=== PATIENT | female | born 1950 | race Two or more races ===

== ENCOUNTER 2018-08-03 13:26 | Outpatient (CLI) | payer OTHER | END 2018-08-03 13:36 | disposition home or self-care (01) | LOC: RAD 501 13:26 | DX: M25.512 Pain in left shoulder (principal) ==

== ENCOUNTER 2018-10-23 11:21 | Outpatient (CLI) | payer OTHER | END 2018-10-23 11:28 | disposition home or self-care (01) | LOC: RAD 501 11:21 | DX: M54.5 Low back pain (principal); M25.551 Pain in right hip ==

== ENCOUNTER 2020-08-09 13:32 | Outpatient (CLI) | payer OTHER | END 2020-08-09 13:41 | disposition HB | LOC: RAD 13:32 | PROVIDERS: ATTEND Physical Medicine & Rehabilitation | DX: M72.2 Plantar fascial fibromatosis (principal) ==

== ENCOUNTER 2022-04-22 14:36 | Emergency (ER) | payer OTHER ==
[~2022-04-22] VITALS: Ht 160 cm; Wt 131.1 kg
[2022-04-22] MEDS ORDERED: GLIMEPIRIDE4 M1 PO (15:18)
[2022-04-22] MEDS ORDERED: JANUMET 50-1,01 EACH PO (15:18)
[2022-04-22] MEDS ORDERED: CARVEDILOL25 M1 PO (15:19)
[2022-04-22] MEDS ORDERED: LOSARTAN POTAS100 MG PO (15:19)
[2022-04-22] MEDS ORDERED: FUROSEMIDE40 MG PO (15:19)
[2022-04-22] MEDS ORDERED: PRAVASTATIN SOD80 MG PO (15:19)
== END 2022-04-22 19:29 | disposition home or self-care (01) ==
LOC: ER 14:36
DX: J44.1 Chronic obstructive pulmonary disease with (acute) exacerbation (principal); J45.901 Unspecified asthma with (acute) exacerbation; Z20.822 Contact with and (suspected) exposure to COVID-19; Z91.041 Radiographic dye allergy status; Z88.6 Allergy status to analgesic agent

== ENCOUNTER 2023-08-22 18:46 | Inpatient (IN) | payer OTHER ==
[~2023-08-22] VITALS: Ht 160 cm; Wt 134.3 kg
[~2023-08-22 18:46] MED LIST: CARVEDILOL25 M1 PO; FUROSEMIDE40 MG PO; GLIMEPIRIDE4 M1 PO; JANUMET 50-1,01 EACH PO; LOSARTAN POTAS100 MG PO; PRAVASTATIN SOD80 MG PO
--- NOTE | 2023-08-22 20:04 | NUR ---
PTE ALERTA Y OEIENTADA X3 REFIERE VENIR POR ASMA, SE REALIZA EKG Y SE PRESENTA MD LAMA, EL MISMO INDICA PASAR A PTE A LA UNIDAD DE CHEST PAIN. AL MOMENTO DE VITALES PTE SATURANDO 90% Y PRESION ARTERIAL MANUAL 200/130
[2023-08-22] MEDS ORDERED: NITROGLYCERIN IN 5 % DEXTROSE 250 ML IV SCH (20:15)
[2023-08-22] MEDS ORDERED: FUROsemide 40 MG/4 ML VIAL IV ONE (20:15)
[2023-08-22 20:19] LABS: HEMATOCRIT 35.4 % (36.0-45.00); HEMOGLOBIN 12.1 g/dL (12.0-15.00); MEAN CELL VOLUME 72.4 fL (80.00-100.00); MEAN CORPUSCULAR HEMOGLOBIN 24.7 pg (27.00-32.0); MEAN CORPUSCULAR HGB CONC 34.1 g/dl (32.0-36.0); PLATELET COUNT 241 K/uL (150-450); RED BLOOD COUNT 4.88 M/uL (4.00-6.00); RED CELL DISTRIBUTION WIDTH 19.9 % (11.5-14.5)
[2023-08-22 20:20] LABS: ABG PH 7.388 (7.35-7.45); ABG PO2 61.5 mmHg (80-100); ABG pCO2 53.5 mmHg (35-45); BICARBONATE 31.5 mmol/l (23-25); SaO2 91.3 %; Tco2 33.2 mmol/l; allen test SATISFACTORY; o2 21 %; puncture site RADIAL LEFT
[2023-08-22 20:51] LABS: ALBUMIN 3.7 gm/dL (3.4-5.0); BILIRUBIN TOTAL 0.38 mg/dL (0.3-1.2); CALCIUM 9.5 mg/dL (8.5-10.1); CREATININE SERUM 0.8 mg/dL (0.55-1.02); GFR 70.12; GLOBULINA 4.3 G/DL (2.4-3.5); POTASSIUM 4.55 mEq/L (3.5-5.1)
--- NOTE | 2023-08-22 20:59 | NUR ---
SE RECIBE PTE ALERTA Y ORIENTADA X3 EN UNIDAD DE CHEST PAIN. SE UBICA PTE EN CAMA 16, SE COLOCA CAMA EN NIVEL MAS BAJO, SE CONECTA PTE A TELEMETRIA Y OXIMETRIA DE PULSO CONTINUA, SE COLOCA VENTURY MASK AL 40%, SE CANALIZA PTE EN BRAZO JAYDEN X2 CON ANGIOS #20, LOS CUALES SE LISA PATENTES,ALEX DE EDEMA Y ERITEMA. SE COLOCA TRIDIL 50ML/250ML BAJANDO A 3ML/HR. SE INSERTA POWELL CATHETER EL CUAL ESTA BAJANDO A GRAVEDAD Y PRESENTA RETORNO DE ORINA COLOR AMARILLO TORO,JEY TRASPARENTE Y SIN SEDIMENTOS. SE COLECTAN MUESTRAS DE LABORATORIO Y SE ADMINISTRAN MEDICAMENTOS BAJO MEDIDAS ASEPTICAS Y SUSANA LA ORDEN MEDICA. SE MANTIENE PTE BAJO OBSERVACION POR CAMBIOS SIGNIFICATIVOS.
[2023-08-22] MEDS ORDERED: LEVALBUTEROL HCL 1.25 MG/3 ML SOLUTION IH SCH (21:45)
[2023-08-22] MEDS ORDERED: METHYLPREDNISOLONE SOD SUCC 125 MG VIAL IV ONE (21:45)
[2023-08-22 22:05] LABS: INR 1.09; PROTHROMBIN TIME 11.4 SECONDS (9.0-11.5)
--- NOTE | 2023-08-22 22:58 | NUR ---
SE RECIBE FEMINA ALERTA Y ORIENTADA POR ASHVIN ESFERAS CON VENTURY MASK 50%. ESTA CONECTADA AL MONITOR CARDIACO, NBP Y OXIMETRIA CONTINUA. TIENE CANALIZACION X3 EN BRAZO JAYDEN, PERMANECEN PATENTE ALEX DE EDEMA Y ERITEMA. TIENE DRIP DE TRIDIL 50MG/250 ML @3ML/HR. TIENE POWELL A GRAVEDAD CON ORINA AMARILLA NEHEMIAH. PENDIENTE CT PECHO CON IV CONTRAST
[2023-08-22] MEDS ORDERED: DIPHENHYDRAMINE HCL 50 MG/ML VIAL 1ML IV ONE (23:15)
[2023-08-22] MEDS ORDERED: ENOXAPARIN SODIUM 100 MG/ML SYRINGE SUBCUTANEO ONE (23:45)
[2023-08-23] MEDS ORDERED: cloNIDine HCL 0.2 MG TABLET PO ONE (00:15)
--- NOTE | 2023-08-23 07:31 | NUR ---
SE RECIBE PACIENTE FEMEINA DE 73 ANOS DE UNIDAD DE CHEST PAIN CONECTADA A MONITOR CARDIACO Y OXIMETRIA DE PULSO ENTREGADA POR RN DAUGHERTY QUIEN ORIENTA SOBRE EL MORRIS. PACIENTE SE ENCUENTRA ALERTA Y ORIENTADA, CON RITMO SINUSAL SATURANDO A 95% ESTABLE DENTRO DE CORNEJO CONDICION. SE OBSERVAN VENOPUNCIONES EN LADO IZQ CON ANGIO #20, POR DONDE ESTA RECIBIENDO UN TRIDIL 50MG/250MG BAJANDO A 3ML/HR. ASISTIDA CON UN VENTURY MASK AL 50% Y CON UN POWELL BAJANDO A GRAVEDAD CON CAMA EN 45 GRADOS PARA MEJORAR VENTILACION Y RESPIRACION. SE MIDEN S/V DE PACIENTE Y SE REPORTAN. SE MANTIENE A PACIENTE BAJO OBSERVAION POR CAMBIOS SIGNIFICATIVOS. PENDIENTE CONSULTA CON PARA EVALUCION.
[2023-08-23] MEDS ORDERED: LEVALBUTEROL HCL 0.63 MG/3 ML SOLUTION IH SCH (09:00)
[2023-08-23] MEDS ORDERED: METHYLPREDNISOLONE SOD SUCC 40 MG VIAL IV SCH (09:03)
[2023-08-23] MEDS ORDERED: GUAIFENESIN/DEXTROMETHORPHAN 100 MG/5 ML ML PO SCH (09:03)
[2023-08-23] MEDS ORDERED: AZITHROMYCIN 500 MG in 0.9 % SODIUM CHLORIDE 250 ML IV SCH (09:03)
[2023-08-23] MEDS ORDERED: CEFTRIAXONE SODIUM 1,000 MG in 0.9 % SODIUM CHLORIDE 100 ML IV SCH (09:03)
[2023-08-23] MEDS ORDERED: CARVEDILOL 25 MG TABLET PO SCH (09:04)
[2023-08-23] MEDS ORDERED: LOSARTAN POTASSIUM 100 MG TABLET PO SCH (09:04)
[2023-08-23] MEDS ORDERED: PATIENTS OWN MEDICATION (MEDICAMENTO EN PISO) PO SCH (09:08)
[2023-08-23] MEDS ORDERED: FUROsemide 40 MG TABLET PO SCH (09:10)
[2023-08-23] MEDS ORDERED: INSULIN LISPRO 1,000 UNIT/10 ML UNITS SUBCUTANEO PRN (09:15)
[2023-08-23] MEDS ORDERED: DEXTROSE 50 % IN WATER 0.5 G/ML DISP.SYRIN IV PRN (09:15)
[2023-08-23] MEDS ORDERED: ENALAPRILAT DIHYDRATE 2.5 MG/2 ML VIAL IV PRN (09:15)
[2023-08-23] MEDS ORDERED: ENALAPRILAT DIHYDRATE 1.25 MG/ML VIAL IV PRN (16:30)
[2023-08-24 08:53] LABS: ALBUMIN 3.4 gm/dL (3.4-5.0); BILIRUBIN TOTAL 0.3 mg/dL (0.3-1.2); CALCIUM 8.4 mg/dL (8.5-10.1); CHOL HDL RATIO 3.3 (0-5.0); CREATININE SERUM 0.91 mg/dL (0.55-1.02); GFR 60.43; GLOBULINA 4.1 G/DL (2.4-3.5); POTASSIUM 4.75 mEq/L (3.5-5.1); TOTAL PROTEIN 7.5 gm/dL (6.4-8.2)
[2023-08-24 08:56] LABS: TSH 0.275 uIU/mL (0.358-3.74)
[2023-08-24] MEDS ORDERED: PANTOPRAZOLE SODIUM 40 MG TABLET.DR PO SCH (09:00)
[2023-08-24] MEDS ORDERED: PATIENTS OWN MEDICATION (MEDICAMENTO EN PISO) PO SCH (09:00)
[2023-08-24] MEDS ORDERED: ENOXAPARIN SODIUM 40 MG/0.4 ML SYRINGE SUBCUTANEO SCH (09:00)
[2023-08-25] MEDS ORDERED: PRAVASTATIN 40 MG PO SCH (21:00)
[2023-08-26] MEDS ORDERED: METHYLPREDNISOLONE SOD SUCC 40 MG VIAL IV SCH (01:00)
[2023-08-26 05:23] LABS: HEMATOCRIT 36.5 % (36.0-45.00); HEMOGLOBIN 12.4 g/dL (12.0-15.00); MEAN CELL VOLUME 74.7 fL (80.00-100.00); MEAN CORPUSCULAR HEMOGLOBIN 25.3 pg (27.00-32.0); MEAN CORPUSCULAR HGB CONC 33.9 g/dl (32.0-36.0); PLATELET COUNT 251 K/uL (150-450); RED BLOOD COUNT 4.89 M/uL (4.00-6.00); RED CELL DISTRIBUTION WIDTH 19.9 % (11.5-14.5)
[2023-08-26 05:44] LABS: ALBUMIN 3.4 gm/dL (3.4-5.0); BILIRUBIN TOTAL 0.28 mg/dL (0.3-1.2); CALCIUM 8.1 mg/dL (8.5-10.1); CREATININE SERUM 0.81 mg/dL (0.55-1.02); GFR 69.12; GLOBULINA 4.1 G/DL (2.4-3.5); MAGNESIUM 1.6 mg/dL (1.8-2.4); PHOSPHOROUS 2.6 mg/dL (2.5-4.9); POTASSIUM 4.44 mEq/L (3.5-5.1); TOTAL PROTEIN 7.5 gm/dL (6.4-8.2)
[2023-08-26 05:49] LABS: C-REACTIVE PROTEIN 0.79 MG/DL (0.00-0.29)
[2023-08-26 06:35] LABS: MYCOPLASMA PNEUMONIAE IGM NON REACTIVE (NO REACTIVE)
[2023-08-28] MEDS ORDERED: METHYLPREDNISOLONE SOD SUCC 40 MG VIAL IV SCH ×2 (01:00→21:00)
== END 2023-08-29 15:16 | disposition home or self-care (01) | DRG 190 ==
LOC: ER 18:46 → MEDJ 08-23 09:55
PROVIDERS: General Practice; Internal Medicine Infectious Disease; ADMIT Internal Medicine; ATTEND Internal Medicine
PROC: BB24ZZZ Computerized Tomography (CT Scan) of Bilateral Lungs (ICD-10-PCS; principal; 2023-08-22)
PROC: B246ZZZ Ultrasonography of Right and Left Heart (ICD-10-PCS; 2023-08-23)
PROC: 3E0F7GC Introduction of Other Therapeutic Substance into Respiratory Tract, Via Natural or Artificial Opening (ICD-10-PCS; 2023-08-23)
PROC: 4A12X4Z Monitoring of Cardiac Electrical Activity, External Approach (ICD-10-PCS; 2023-08-23)
DX: J44.1 Chronic obstructive pulmonary disease with (acute) exacerbation (principal); J18.9 Pneumonia, unspecified organism; E66.01 Morbid (severe) obesity due to excess calories; I10 Essential (primary) hypertension; E11.9 Type 2 diabetes mellitus without complications; Z79.4 Long term (current) use of insulin

== ENCOUNTER 2024-04-23 10:29 | Outpatient (CLI) | payer OTHER ==
[~2024-04-23 10:29] MED LIST changes: +ADULT ASPIRIN81 MG PO; +BENZONATATE100 MG PO; +DOXAZOSIN MESYLA2 MG PO; +MEDROLPACK PO; +MONTELUKAST SOD10 MG PO; +PEPCID AC20 MG PO; +SIMVASTATIN40 MG PO; +TOPROL XL25 M1 PO; +Tussi-Organidin Dm-S PO
== END 2024-04-23 10:30 | disposition home or self-care (01) ==
LOC: NUCLEAR 10:29
PROVIDERS: ATTEND Internal Medicine
DX: I65.22 Occlusion and stenosis of left carotid artery (principal)

== ENCOUNTER → 2024-05-26 07:39 | Outpatient (CLI) | payer OTHER ==
[2024-05-26 08:29] LABS: CREATININE SERUM 0.78 mg/dL (0.55-1.02)
== END | disposition home or self-care (01) ==
LOC: LAB 07:39
PROVIDERS: ATTEND Radiology Diagnostic Radiology
DX: I65.21 Occlusion and stenosis of right carotid artery (principal); I65.22 Occlusion and stenosis of left carotid artery

== ENCOUNTER 2024-05-31 09:42 | Outpatient (CLI) | payer OTHER | END 2024-05-31 10:01 | disposition home or self-care (01) | LOC: TOM 09:42 | DX: I65.21 Occlusion and stenosis of right carotid artery (principal); I65.22 Occlusion and stenosis of left carotid artery | CPT/HCPCS: 70498; Q9965 ==

== ENCOUNTER → 2024-06-15 | Outpatient (CLI) | payer OTHER | END | disposition home or self-care (01) | LOC: RAD 11:37 | PROVIDERS: ATTEND Physical Medicine & Rehabilitation | DX: M25.561 Pain in right knee (principal) ==